=== PATIENT | female | born 1950 | race Caucasian/White ===

== ENCOUNTER → 2020-03-26 10:40 | Outpatient (BNVA) | payer MEDICARE, MEDICAID, SELFPAY | PROVIDERS: Family Provider Family Medicine; Visit Provider Family Medicine | DX: I10 Essential (primary) hypertension (principal); E78.5 Hyperlipidemia, unspecified | CPT/HCPCS: 80053; 80061; 85025 ==

== ENCOUNTER → 2020-08-20 10:39 | Outpatient (BNVA) | payer MEDICARE, MEDICAID, SELFPAY | PROVIDERS: Family Provider Family Medicine; Visit Provider Family Medicine | DX: J44.9 Chronic obstructive pulmonary disease, unspecified (principal); I10 Essential (primary) hypertension; E78.5 Hyperlipidemia, unspecified; M19.90 Unspecified osteoarthritis, unspecified site; K21.9 Gastro-esophageal reflux disease without esophagitis; E78.2 Mixed hyperlipidemia | CPT/HCPCS: 80048 ==

== ENCOUNTER → 2021-03-02 12:12 | Outpatient (BNVA) | payer MEDICARE, MEDICAID, SELFPAY | PROVIDERS: Family Provider Family Medicine; PCP Family Medicine; Visit Provider Family Medicine | DX: J44.9 Chronic obstructive pulmonary disease, unspecified (principal); J41.0 Simple chronic bronchitis; I10 Essential (primary) hypertension; K21.9 Gastro-esophageal reflux disease without esophagitis; E78.5 Hyperlipidemia, unspecified; E78.2 Mixed hyperlipidemia; M19.90 Unspecified osteoarthritis, unspecified site; M72.0 Palmar fascial fibromatosis [Dupuytren] | CPT/HCPCS: 80053; 80061; 85025 ==

== ENCOUNTER → 2021-08-19 11:29 | Outpatient (BNVA) | payer MEDICARE, MEDICAID, SELFPAY | PROVIDERS: Family Provider Family Medicine; PCP Family Medicine; Visit Provider Family Medicine | DX: I10 Essential (primary) hypertension (principal); J44.9 Chronic obstructive pulmonary disease, unspecified | CPT/HCPCS: 80053; 85025 ==

== ENCOUNTER 2021-11-03 08:02 | Outpatient (CLI) | payer MEDICARE, MEDICAID, SELFPAY ==
[2021-11-03 08:50] VITALS: BMI 32.1
--- NOTE | 2021-11-03 08:54 | ECG_ITS ---
[facility] Test Date: 2021-11-03 Pat Name: Naz Carter Department: Room: Gender: Female Head Of Academic Technology: : 1950 Requested By: Maryan Currie Order Number: [id number] Dany MD: Maryan Currie M.D. Interpretive Statements NAME OF STUDY: EXERCISE SESTAMIBI STRESS TEST INDICATION: Chest Pain Baseline blood pressure of 132/71 mm Hg, heart rate 117 beats per minute and oxygen saturation 93%. EKG showed sinus tachycardia normal axis with possible old anteroseptal infarct. The patient exercised for 3 minutes on a standard Sang protocol. Patient attained a maximum heart rate of 166 beats per minute(112% of the maximum predicted heart rate) with a blood pressure at the peak exercise of 155/77 mm Hg. The EKG at the peak exercise revealed sinus tachycardia with no significant ST-T wave changes. Patient did not have any chest pain or any significant arrhythmis with the exercise. The study was terminated due to exertional fatigue and shortness of breath. During the recovery phase, there were no new changes. Blood pressure at the end of the recovery phase was 122/74 mm Hg with a heart rate of 106 beats per minute. CONCLUSION: 1. Normal EKG response to treadmill exercise. 2. No exercise-induced chest pain or cardiac arrhythmia. 3. Decreased exercise tolerance, attained a maximum of 4.6 METs. Maximum VO2 of 16.1 mL/kg/min. Patient exercised for 3 minutes. 4. Baseline normal blood pressure with normal response to exercise. Baseline tachycardia with exaggerated heart rate response to exercise. 5. Perfusion scan will be documented separately. Electronically Signed On 11-04-2021 13:47:49 SOCIAL SERVICE ASSISTANT by Maryan Currie M.D. [id number]
--- NOTE | 2021-11-03 08:54 | NMCV_ITS ---
NM osito perf SPECT r/s* [id number] Naz Carter Age: 70 Gender: F : 1950 Exam Date: 11/03/2021 08:54 Ordering Phys: Maryan Currie MD ([email or web address]) Technologist: MATIAS Hills Exam Location: [facility] Indications: CHEST PAIN STRESS TEST [facility] IMAGE PROTOCOL Rest/Stress 1 Exercise Day Radiopharmaceutical Dose (mCi) Administration Site Administered by Rest: Tc-99m 10.8 IV MATIAS Souza Sestamibi Stress:Tc-99m 32.9 IV MATIAS Souza Sestamibi Rest: 03-Nov-2021 60 Discovery 630 Stress: 03-Nov-2021 30 Discovery 630 Radiopharmaceutical was injected at 104% maximum heart rate. Images obtained in supine and prone position. SPECT RESULTS Technical Quality: Excellent Raw Data Analysis: Normal Image Corrections: No attenuation or motion correction applied Summed Stress Score: 1 Summed Rest Score: 1 Summed Difference Score: 0 PERFUSION FINDINGS SPECT images demonstrate homogeneous tracer distribution throughout the myocardium. FUNCTIONAL RESULTS (calculated via Gated SPECT) Stress Image LV EF (%): 92 Stress EDV (mL):36 TID: 0.86 Stress ESV (mL):3 FUNCTIONAL FINDINGS: The left ventricle is normal in size. Transient Ischemia Dilatation of 0.86. There is hyperdynamic left ventricular systolic function. The left ventricular ejection fraction is normal with a value of 92%. There is hyperdynamic left ventricular wall thickening. IMPRESSIONS 1. Myocardial perfusion imaging is normal. 2. There is hyperdynamic left ventricular systolic function, LVEF=92%. 3. There is hyperdynamic left ventricular wall thickening. 4. Normal EKG response to treadmill exercise. Decreased exercise tolerance. Refer to separate report for details. 5. Scan indicates low risk for cardiac events. Maryan Currie MD (Electronically Signed) Final Date: 04 November 2021 13:43 S
[2021-11-03 10:37] VITALS: BP 122/74; PULSE 105
== END 2021-11-03 08:03 | disposition home or self-care (01) ==
LOC: CDL 08:03
PROVIDERS: PCP Family Medicine; Visit Provider Internal Medicine Cardiovascular Disease
DX: R07.9 Chest pain, unspecified (principal)
CPT/HCPCS: 78452; 93017; A9500

== ENCOUNTER 2022-01-04 14:15 | Outpatient (CLI) | payer MEDICARE, MEDICAID, SELFPAY ==
--- NOTE | 2022-01-04 14:36 | MM_ITS ---
WS: [id number] BILATERAL SCREENING 3D TOMOSYNTHESIS DIGITAL MAMMOGRAM WITH CAD HISTORY: SCREENING COMPARISON: 10/11/2017 and 06/11/2015 Bilateral CC and MLO views submitted. Computer aided detection analyzed. Breast composition: There are scattered areas of fibroglandular density. No suspicious masses, microc alcifications or architectural distortion. MM/[place] [id number] IMPRESSION: BI-RADS: 2-Benign FOLLOW UP: 1 Year Follow-up
--- NOTE | 2022-01-04 14:45 | XR_ITS ---
WS: [id number] SCREENING DEXA SCAN Quu CLINICAL INFORMATION: Z78.0 - Asymptomatic menopausal state COMPARISON: None. FINDINGS: The L1-L4 bone mineral density measures 1.079 g/cm2. This corresponds to a T score score of -0.8 and Z score of 0.3. Left femoral neck bone mineral density measures 0.843 g/cm2. This corresponds to a T score of -1.3 an d Z score of -0.1. Right femoral neck bone mineral density measures 0.883 g/cm2. This corresponds to a T score -1.0of an d Z score of 0.2. Mean femoral neck bone mineral density measures 0.863 g/cm2. This corresponds to a T score of -1.1 an d Z score of 0.0. XR/XR DEXA axial skeleton* 92576 IMPRESSION: Normal bone mineralization in the lumbar spine. Osteopenia in the femoral necks . Patient's FRAX calculated 10 year probability for major osteoporotic fracture i s 13.8 % and osteoporotic hip fracture is 3.5%.
== END 2022-01-04 14:16 | disposition home or self-care (01) ==
LOC: RAD 14:18
PROVIDERS: PCP Family Medicine; Visit Provider Family Medicine
DX: Z12.31 Encounter for screening mammogram for malignant neoplasm of breast (principal); Z78.0 Asymptomatic menopausal state
CPT/HCPCS: 77063; 77067; 77080

== ENCOUNTER → 2022-01-12 07:55 | Outpatient (BNVA) | payer MEDICARE, MEDICAID, SELFPAY | PROVIDERS: PCP Family Medicine; Referring Provider Family Medicine; Visit Provider Surgery | DX: Z12.11 Encounter for screening for malignant neoplasm of colon (principal) | CPT/HCPCS: 99024; 99203 ==

== ENCOUNTER → 2022-02-10 10:17 | Outpatient (BNVA) | payer MEDICARE, MEDICAID, SELFPAY | PROVIDERS: PCP Family Medicine; Visit Provider Family Medicine | DX: J44.9 Chronic obstructive pulmonary disease, unspecified (principal); M19.90 Unspecified osteoarthritis, unspecified site; I10 Essential (primary) hypertension; E78.5 Hyperlipidemia, unspecified; K21.9 Gastro-esophageal reflux disease without esophagitis; E78.2 Mixed hyperlipidemia; F41.1 Generalized anxiety disorder; Z12.11 Encounter for screening for malignant neoplasm of colon; R25.2 Cramp and spasm | CPT/HCPCS: 80053; 80061; 83735; 85025 ==

== ENCOUNTER → 2022-02-19 06:43 | Day surgery (SDC) | payer MEDICARE, MEDICAID, SELFPAY ==
[2022-02-17 15:42] VITALS: BMI 33.1
[2022-02-19 07:14] VITALS: BP 112/71; PULSE 78; RESP 18; TEMP 36.6; O2SAT 93
--- NOTE | 2022-02-19 07:23 | PC.NURSE ---
when getting pt ready she states that she had solid food at 1800 yesterday. notified emigdio berg and tap water enema given. pt had brown liquid with small pieces of formed stool. when continuing questions pt stated she did not drink magnesium citrate or take dulcolax tablets. dr. berg notified . procedure cancelled.
--- NOTE | 2022-02-19 07:47 | PC.NURSE ---
spoke with pt. I will call office to have pt rescheduled.
--- NOTE | 2022-02-19 12:00 | ANE.PACU2 ---
Inpatient post-anesthesia follow up: Airway intact: Yes Vital signs: Temperature 97.8 F Pulse Rate 78 Respiratory Rate 18 Blood Pressure 112/71 Pulse Oximetry 93 Oxygen Delivery Me thod Room Air Oxygen Flow Rate Fraction of Inspir ed Oxygen Hydration adequate: Yes Nausea and vomiting: No Pain level: 1 Mental status: Baseline
[2022-05-10 11:49] VITALS: BMI 32.2
== END ==
PROVIDERS: PCP Family Medicine; Visit Provider Surgery
PROC: 0DJD8ZZ Inspection of Lower Intestinal Tract, Via Natural or Artificial Opening Endoscopic (ICD-10-PCS; CPT 45378; principal; 2022-05-12 20:15)
DX: Z01.818 Encounter for other preprocedural examination (principal)

== ENCOUNTER 2022-05-12 07:05 | Day surgery (SDC) | payer MEDICARE, MEDICAID, SELFPAY ==
[2022-05-12 07:00] VITALS: BMI 32.2
[2022-05-12 07:38] VITALS: BP 159/78; PULSE 70; RESP 16; TEMP 36.1; O2SAT 92
[2022-05-12] MEDS: sodium chloride 0.9% 1,000 ML 30 ML IV (07:49)
--- NOTE | 2022-05-12 07:55 | P.ANESASSM_ITS ---
Pre-Anesthetic Assessment Height/Weight: Height 1.63 m Weight 85.275 kg Temp Pulse Resp BP Pulse Ox O2 Del Method 97 F L 70 16 159/78 92 05/12/22 07:38 05/12/22 07:38 05/12/22 07:38 05/12/22 07:38 05/12/22 07:38 05/12/22 07:38 Preop Diagnosis: diagnostic Operation Date: 05/12/22 08:45 Proposed Procedures p Colonoscopy 42681/Z12.11(Not Applicable) - Sanchez Gomez MD Familial anesthetic complications: None Was Beta Ayse taken within 24 hours: N/A Was Clonidine taken within 24 hours: N/A Last intake: Intake Last Liquid Date 05/11/22 Last Liquid Time 21:00 Last Solid Date 05/10/22 Last Solid Time 17:00 Social No alcohol and No tobacco former smoker Exam alert, oriented x 3 and regular rate & rhythm Diffuse mild wheezes - patient already took her inhalers this morning Airway Mallampati: Class II Dentition: false Pulmonary Chronic Obstructive Pulmonary Disease (3 L NC continously) and Sleep Apnea CV/HEM Hypertension GI Gastroesophageal Reflux Disease Neuropsych Anxiety Anesthetic Plan ASA status: 4 Anesthesia: MAC Risk of > 500 ml blood loss (7ml/kg in children): No Medications/Allergies Home Medications Medication Instructions Recorded Confirmed Last Taken Type aspirin 81 mg tablet,delayed 81 mg PO DAILY 12/12/19 05/12/22 05/09/22 History release omega 5-aje-nsz-fish oil 500 mg 1 cap PO DAILY 12/12/19 05/12/22 05/11/22 History (200mg-300mg)-1,000 mg capsule (Ultra [place]-3) cholecalciferol (vitamin D3) 50 50 mcg PO DAILY 09/08/21 05/12/22 05/11/22 History mcg (2,000 unit) capsule lavb-H97-xyoimygj tablet 1 tab PO DAILY 09/08/21 05/12/22 05/11/22 History albuterol sulfate See Rx Instructions .Route 02/10/22 05/12/22 05/11/22 Rx .COMPLEX #180 vials albuterol sulfate 90 mcg/actuation 2 puff inhalation 6XD PRN 02/10/22 05/12/22 05/12/22 Rx aerosol inhaler shortness of breath or wheezing 90 days #72 grams guaifenesin 1,200 mg tablet, 1,200 mg PO Q12H PRN cough 30 days 02/10/22 05/12/22 05/11/22 Rx extended release 12 hr #60 tabs ipratropium 20 mcg-albuterol 100 1 puff inhalation 6XD PRN 02/10/22 05/12/22 05/11/22 Rx mcg/actuation mist for inhalation shortness of breath or wheezing #4 (Combivent Respimat) grams meloxicam 15 mg tablet 15 mg PO DAILY 90 days #90 tabs 02/10/22 05/12/22 05/11/22 Rx omeprazole 40 mg capsule,delayed 40 mg PO BID 90 days #180 caps 02/10/22 05/12/22 05/11/22 Rx release propranolol 20 mg tablet 20 mg PO BID 90 days #180 tabs 02/10/22 05/12/22 05/11/22 Rx roflumilast 500 mcg tablet See Rx Instructions .Route 02/10/22 05/12/22 05/11/22 Rx (Gregoriresp) .COMPLEX 90 days #90 tabs fluticasone 250 mcg-salmeterol 50 1 inh inhalation BID 30 days #60 ea 02/13/22 05/12/22 05/11/22 Rx mcg/dose blistr powdr for inhalation (Advair Diskus) loratadine 10 mg capsule 10 mg PO DAILY PRN Allergy Symptoms 02/17/22 05/12/22 05/11/22 History alprazolam 0.5 mg tablet 0.25 mg PO BID PRN anxiety #25 tabs 02/24/22 05/12/22 05/11/22 Rx hydrochlorothiazide 12.5 mg tablet See Rx Instructions .Route 03/01/22 05/12/22 05/11/22 Rx .COMPLEX #90 tabs pravastatin 40 mg tablet 40 mg PO DAILY 05/10/22 05/12/22 05/11/22 History PreserVision AREDS-2 2 tab PO DAILY 05/12/22 05/12/22 05/11/22 History Allergies Allergy/AdvReac Type Severity Reaction Status Date / Time No Known Allergies Allergy Verified 02/17/22 15:52 Current Medications Generic Name Dose Route Start Last Admin Trade Name Freq PRN Reason Stop Dose Admin Sodium Chloride 1,000 mls @ 30 mls/hr 05/12/22 07:30 05/12/22 07:49 Sodium Chloride 0.9% IV 05/13/22 07:29 30 mls/hr .Q24H BRIDGET Administration PFSH Anesthesia Medical History (Updated 02/28/22 @ 21:52 by Talisha Navarrete) Chronic arthritis 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 COPD (chronic obstructive pulmonary disease) Generalized anxiety disorder GERD (gastroesophageal reflux disease) HTN (hypertension), benign Hyperlipidemia JAQUELIN (obstructive sleep apnea) Panic disorder Pneumothorax Psychiatric care Surgical History H/O esophagogastroduodenoscopy History of colonoscopy 10+yrs S/P thoracostomy tube placement Family History Sister CAD (coronary artery disease) Father Heart attack Mother CHF (congestive heart failure) Social History Smoking and tobacco status: former smoker (quit in 2014) Quit status (tobacco): has quit using tobacco Year quit tobacco: 2016 Second hand smoke exposure: Yes Alcohol intake: never Female Reproductive History Spontaneous abortions: No Data Anesthesia Cardiac Studies: Sestamibi Stress Test (Cardiology) 11/03
--- NOTE | 2022-05-12 09:00 | W.PM.OPSFHP ---
Same Day Surgery H&P Indication for Procedure/HPI DATE OF PROCEDURE: May 12, 2022 CHIEF COMPLAINT/INDICATIONFOR SURGICAL PROCEDURE: colonoscopy PREOP DIAGNOSIS: diagnostic PLANNED PROCEDURE: Operation Date: 05/12/22 08:45 Proposed Procedures p Colonoscopy 38962/Z12.11(Not Applicable) - aSnchez Gomez MD Medications/Allergies* Home Medications Medication Instructions Recorded Confirmed Type aspirin 81 mg tablet,delayed 81 mg PO DAILY 12/12/19 05/12/22 History release omega 7-xfa-wea-fish oil 500 mg 1 cap PO DAILY 12/12/19 05/12/22 History (200mg-300mg)-1,000 mg capsule (Ultra [place]-3) cholecalciferol (vitamin D3) 50 50 mcg PO DAILY 09/08/21 05/12/22 History mcg (2,000 unit) capsule eijz-A88-dcbrkhpy tablet 1 tab PO DAILY 09/08/21 05/12/22 History loratadine 10 mg capsule 10 mg PO DAILY PRN Allergy Symptoms 02/17/22 05/12/22 History pravastatin 40 mg tablet 40 mg PO DAILY 05/10/22 05/12/22 History PreserVision AREDS-2 2 tab PO DAILY 05/12/22 05/12/22 History Allergies/Adverse Reactions Allergy/AdvReac Type Severity Reaction Status Date / Time No Known Allergies Allergy Verified 02/17/22 15:52 Current Medications: Generic Name Dose Route Start Last Admin Trade Name Freq PRN Reason Stop Dose Admin Sodium Chloride 1,000 mls @ 30 mls/hr 05/12/22 07:30 05/12/22 07:49 Sodium Chloride 0.9% IV 05/13/22 07:29 30 mls/hr .Q24H BRIDGET Administration Pertinent History/Comorbid Conditions* Medical History (Updated 02/28/22 @ 21:52 by Talisha Navarrete) Chronic arthritis 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 COPD (chronic obstructive pulmonary disease) Generalized anxiety disorder GERD (gastroesophageal reflux disease) HTN (hypertension), benign Hyperlipidemia JAQUELIN (obstructive sleep apnea) Panic disorder Pneumothorax Psychiatric care Surgical History (Updated 01/12/22 @ 08:22 by Sanchez Gomez MD) H/O esophagogastroduodenoscopy History of colonoscopy 10+yrs S/P thoracostomy tube placement Family History (Updated 09/08/21 @ 10:05 by Helen Rod LPN) Father Mother CAD (coronary artery disease) Sister CHF (congestive heart failure) Mother Heart attack Father Social History Smoking and tobacco status: former smoker (quit in 2014) Quit status (tobacco): has quit using tobacco Year quit tobacco: 2016 Second hand smoke exposure: Yes Alcohol intake: never Pertinent Exam Findings alert, oriented x 3 and regular rate & rhythm Recommendations Surgery/Procedure today Coding Level of Care Code Acute Delivery Coordinator for Kayla Blackwell
[2022-05-12 10:17] VITALS: BP 102/54; PULSE 66; RESP 18; TEMP 36.1; O2SAT 96
[2022-05-12 10:28] VITALS: BP 107/69; PULSE 65; RESP 18; O2SAT 96
--- NOTE | 2022-05-12 17:54 | ANE.PACU2 ---
Inpatient post-anesthesia follow up: Airway intact: Yes Vital signs: Temperature 97.0 F Pulse Rate 65 Respiratory Rate 18 Blood Pressure 107/69 Pulse Oximetry 96 Oxygen Delivery Me thod Nasal Cannula Oxygen Flow Rate 3 Fraction of Inspir ed Oxygen Hydration adequate: Yes Nausea and vomiting: No Pain level: 1 Mental status: Baseline
== END 2022-05-12 10:47 | disposition home or self-care (01) ==
PROVIDERS: PCP Family Medicine; Visit Provider Surgery
PROC: 0DJD8ZZ Inspection of Lower Intestinal Tract, Via Natural or Artificial Opening Endoscopic (ICD-10-PCS; CPT 45378; principal; 2022-05-12 08:45)
DX: Z12.11 Encounter for screening for malignant neoplasm of colon (principal); K57.30 Diverticulosis of large intestine without perforation or abscess without bleeding; K64.8 Other hemorrhoids; D12.2 Benign neoplasm of ascending colon; D12.4 Benign neoplasm of descending colon; Z79.82 Long term (current) use of aspirin; J44.9 Chronic obstructive pulmonary disease, unspecified; F41.1 Generalized anxiety disorder; I10 Essential (primary) hypertension; E78.5 Hyperlipidemia, unspecified; G47.33 Obstructive sleep apnea (adult) (pediatric); Z87.891 Personal history of nicotine dependence; Z99.81 Dependence on supplemental oxygen; G47.30 Sleep apnea, unspecified; K21.9 Gastro-esophageal reflux disease without esophagitis
CPT/HCPCS: 45385; 88305; J2704; J7030

== ENCOUNTER → 2022-05-18 09:58 | Outpatient (BNVA) | payer MEDICARE, MEDICAID, SELFPAY | PROVIDERS: PCP Family Medicine; Visit Provider Surgery | DX: K63.5 Polyp of colon (principal) | CPT/HCPCS: 99212 ==

== ENCOUNTER → 2022-08-05 09:23 | Outpatient (BNVA) | payer MEDICARE, MEDICAID, SELFPAY | PROVIDERS: PCP Family Medicine; Visit Provider Family Medicine | DX: J44.9 Chronic obstructive pulmonary disease, unspecified (principal); J41.0 Simple chronic bronchitis; I10 Essential (primary) hypertension; M19.90 Unspecified osteoarthritis, unspecified site; K21.9 Gastro-esophageal reflux disease without esophagitis; E78.2 Mixed hyperlipidemia; J96.10 Chronic respiratory failure, unspecified whether with hypoxia or hypercapnia; J44.1 Chronic obstructive pulmonary disease with (acute) exacerbation; F41.1 Generalized anxiety disorder; Z12.11 Encounter for screening for malignant neoplasm of colon | CPT/HCPCS: 80048; 85025 ==

== ENCOUNTER → 2022-10-07 17:02 | Outpatient (BNVA) | payer MEDICARE, MEDICAID, SELFPAY | PROVIDERS: PCP Family Medicine; Visit Provider Emergency Medicine | DX: J41.0 Simple chronic bronchitis (principal); J96.10 Chronic respiratory failure, unspecified whether with hypoxia or hypercapnia | CPT/HCPCS: 71046 ==

== ENCOUNTER → 2023-01-27 09:09 | Outpatient (BNVA) | payer MEDICARE, MEDICAID, SELFPAY | PROVIDERS: PCP Family Medicine; Visit Provider Family Medicine | DX: J41.0 Simple chronic bronchitis (principal); J44.9 Chronic obstructive pulmonary disease, unspecified; I10 Essential (primary) hypertension; M19.90 Unspecified osteoarthritis, unspecified site; K21.9 Gastro-esophageal reflux disease without esophagitis; E78.2 Mixed hyperlipidemia; J96.10 Chronic respiratory failure, unspecified whether with hypoxia or hypercapnia | CPT/HCPCS: 80053; 80061 ==

== ENCOUNTER → 2023-08-03 12:38 | Outpatient (BNVA) | payer MEDICARE, MEDICAID, SELFPAY | PROVIDERS: PCP Family Medicine; Visit Provider Surgery | DX: K21.9 Gastro-esophageal reflux disease without esophagitis (principal); R10.13 Epigastric pain | CPT/HCPCS: 99214 ==

== ENCOUNTER 2023-08-12 07:59 | Day surgery (SDC) | payer MEDICARE, MEDICAID, SELFPAY ==
[2023-08-12 08:20] VITALS: BP 129/73; PULSE 71; RESP 18; TEMP 36.6; O2SAT 96
[2023-08-12 08:23] VITALS: BMI 33.6
[2023-08-12] MEDS: sodium chloride 0.9% 1,000 ML 30 ML IV (08:23)
--- NOTE | 2023-08-12 08:36 | W.PM.OPSUD ---
Surgery/Procedure H&P Update DATE OF PROCEDURE: August 12, 2023 DATE H&P PERFORMED: 08/03/23 H&P UPDATE INFORMATION: I have reviewed H&P completed within last 30 days, I have examined patient prior to procedure and No changes to prior documentation PLANNED PROCEDURE: Operation Date: 08/12/23 09:00 Proposed Procedures p 79474 egd,K21.9,R10.13(Not Applicable) - Kd Eason, DO
--- NOTE | 2023-08-12 08:37 | ANES.PREANE2 ---
Pre-Anesthetic Assessment Height/Weight: Height 1.63 m Weight 88.904 kg Temp Pulse Resp BP Pulse Ox O2 Del Method 97.8 F 71 18 129/73 96 Nasal Cannula 08/12/23 08:20 08/12/23 08:20 08/12/23 08:20 08/12/23 08:20 08/12/23 08:20 08/12/23 08:20 Preop Diagnosis: GERD, Epigastric Pain Operation Date: 08/12/23 09:00 Proposed Procedures p 63808 egd,K21.9,R10.13(Not Applicable) - Kd Eason DO Familial anesthetic complications: none Was Beta Ayse taken within 24 hours: Yes Last intake: Intake Last Liquid Date 08/11/23 Last Liquid Time 22:30 Last Solid Date 08/11/23 Last Solid Time 22:30 Social No alcohol and No tobacco (quit 8 years prior) Exam alert, oriented x 3, clear to auscultation bilaterally and regular rate & rhythm Airway Submandibular: within normal limits Cervical ROM: within normal limits Mallampati: Class II Dentition: false (upper and lower plate) Pulmonary Chronic Obstructive Pulmonary Disease and Sleep Apnea (non-compliant per patient) 3L NC O2 continous use CV/HEM Hypertension Hepatic None reported GI Gastroesophageal Reflux Disease Epigastric Pain Metabolic Hyperlipidemia [facility]/sk None reported Neuropsych Anxiety and Depression Anesthetic Plan ASA status: 3 Medications/Allergies Home Medications Medication Instructions Recorded Confirmed Last Taken Type aspirin 81 mg tablet,delayed 81 mg PO DAILY 12/12/19 08/11/23 08/11/23 History release omega 7-xfg-elm-fish oil 500 mg 1 cap PO DAILY 12/12/19 08/11/23 08/11/23 History (200mg-300mg)-1,000 mg capsule (Ultra [place]-3) cholecalciferol (vitamin D3) 50 50 mcg PO DAILY 09/08/21 08/11/23 08/11/23 History mcg (2,000 unit) capsule qdpm-J39-baawdqpv tablet 1 tab PO DAILY 09/08/21 08/11/23 08/11/23 History loratadine 10 mg capsule 10 mg PO DAILY PRN Allergy Symptoms 02/17/22 08/11/23 08/11/23 History PreserVision AREDS-2 2 tab PO DAILY 05/12/22 08/11/23 08/11/23 History miscellaneous medical supply See Rx Instructions miscellaneous 08/05/22 08/11/23 08/11/23 Rx .COMPLEX #1 ea alprazolam 0.5 mg tablet 0.25 mg PO BID PRN anxiety #20 tabs 04/17/23 08/11/23 08/12/23 Rx albuterol sulfate 90 mcg/actuation 2 puff inhalation 6XD PRN 07/25/23 08/11/23 08/12/23 Rx aerosol inhaler shortness of breath or wheezing 90 days #72 grams fluticasone fur. 200 mcg-umeclid 1 inh inhalation Q24H #60 ea 07/25/23 08/11/23 08/12/23 Rx 62.5 mcg-vilant 25 mcg inhalat.powder (Trelegy Ellipta) hydrochlorothiazide 25 mg tablet 25 mg PO DAILY 90 days #90 tabs 07/25/23 08/11/23 08/11/23 Rx ipratropium 20 mcg-albuterol 100 1 puff inhalation 6XD PRN 07/25/23 08/11/23 08/12/23 Rx mcg/actuation mist for inhalation shortness of breath or wheezing #4 (Combivent Respimat) grams meloxicam 15 mg tablet 15 mg PO DAILY 90 days #90 tabs 07/25/23 08/11/23 08/11/23 Rx pantoprazole 40 mg tablet,delayed 40 mg PO BID 90 days #180 tabs 07/25/23 08/11/23 08/11/23 Rx release pravastatin 40 mg tablet 40 mg PO DAILY 90 days #90 tabs 07/25/23 08/11/23 08/11/23 Rx propranolol 20 mg tablet 20 mg PO BID 90 days #180 tabs 07/25/23 08/11/23 08/12/23 Rx sucralfate 1 gram tablet (Carafate) 1 g PO BID 14 days #28 tabs 07/25/23 08/11/23 08/11/23 Rx albuterol sulfate 2.5 mg/3 mL 2.5 mg inhalation Q4H PRN 08/11/23 08/11/23 08/12/23 History (0.083 %) solution for nebulization Shortness Of Breath roflumilast 500 mcg tablet 500 mcg PO DAILY 08/11/23 08/11/23 08/11/23 History (Dalires) Allergies Allergy/AdvReac Type Severity Reaction Status Date / Time Bactrim Allergy rash Uncoded 08/12/23 08:28 Current Medications Generic Name Dose Route Start Last Admin Trade Name Reeseq PRN Reason Stop Dose Admin Sodium Chloride 1,000 mls @ 30 mls/hr 08/12/23 08:15 08/12/23 08:23 Sodium Chloride 0.9% IV 08/13/23 08:14 30 mls/hr .Q24H BRIDGET Administration PFSH Anesthesia Medical History Chronic arthritis 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 Colon polyps COPD (chronic obstructive pulmonary disease) Generalized anxiety disorder GERD (gastroesophageal reflux disease) HTN (hypertension), benign Hyperlipidemia JAQUELIN (obstructive sleep apnea) Panic disorder Pneumothorax Psychiatric care Surgical History H/O esophagogastroduodenoscopy History of colonoscopy (05/12/22) 10+yrs S/P thoracostomy tube placement Family History Sister CAD (coronary artery disease) Father Heart attack Mother CHF (congestive heart failure) Social History Smoking and tobacco/nicotine status: former use of tobacco/nicotine (quit in 2014) Quit status (tobacco/nicotine): has quit using Year quit tobacco: 2016 Second hand smoke exposure: Yes Alcohol intake: never Substance/Drug Use: never Female Reproductive History Spontaneous abortions: No Data Anesthesia Cardiac Studies: Sestamibi Stress Test (Cardiology) 11/03/21
[2023-08-12 08:57] VITALS: BP 113/62; PULSE 72; RESP 14; TEMP 36.4; O2SAT 95
[2023-08-12 09:02] VITALS: BP 111/67; PULSE 64; RESP 18; O2SAT 95
[2023-08-12 09:10] VITALS: BP 112/57; PULSE 65; RESP 18; O2SAT 98
--- NOTE | 2023-08-12 12:44 | ANE.PACU2 ---
Inpatient post-anesthesia follow up: Airway intact: Yes Vital signs: Temperature 97.5 F Pulse Rate 65 Respiratory Rate 18 Blood Pressure 112/57 Pulse Oximetry 98 Oxygen Delivery Me thod Nasal Cannula Oxygen Flow Rate 4 Fraction of Inspir ed Oxygen Hydration adequate: Yes Nausea and vomiting: No Pain level: 2 Mental status: Baseline
== END 2023-08-12 09:35 | disposition home or self-care (01) ==
PROVIDERS: PCP Family Medicine; Visit Provider Surgery
PROC: 0DJ08ZZ Inspection of Upper Intestinal Tract, Via Natural or Artificial Opening Endoscopic (ICD-10-PCS; CPT 43235; principal; 2023-08-12 09:00)
DX: R10.13 Epigastric pain (principal); K21.9 Gastro-esophageal reflux disease without esophagitis; Z87.891 Personal history of nicotine dependence; J44.9 Chronic obstructive pulmonary disease, unspecified; Z91.199 Patient's noncompliance with other medical treatment and regimen due to unspecified reason; Z99.81 Dependence on supplemental oxygen; I10 Essential (primary) hypertension; E78.5 Hyperlipidemia, unspecified; Z79.82 Long term (current) use of aspirin; G47.33 Obstructive sleep apnea (adult) (pediatric)
CPT/HCPCS: 43239; 88305; 88342; J2704; J7030

== ENCOUNTER 2023-08-24 07:22 | Outpatient (CLI) | payer MEDICARE, MEDICAID, SELFPAY ==
--- NOTE | 2023-08-24 07:30 | US_ITS ---
WS: [id number] RIGHT UPPER QUADRANT ULTRASOUND HISTORY: epigastric pain COMPARISON: None available. Liver: 19.6 cm in length. Moderate hepatomegaly. Coarse echotexture and increased echogenicity throug hout the liver. No mass. No bile duct dilatation. Portal Vein: Not imaged. Gallbladder: Normally distended gallbladder with no stones or wall thickening. CBD: 0.4 cm Pancreas: Normal size and echogenicity. Right kidney: 12.7 cm in length. Normal size and echogenicity. No hydronephrosis or mass. Aorta and IVC: Unremarkable abdominal aorta and IVC. No ascites. IMPRESSION: 1. Moderate hepatomegaly and hepatic steatosis. 2. Normal gallbladder. No cholelithiasis.
== END 2023-08-24 07:23 | disposition home or self-care (01) ==
LOC: RAD 07:22
PROVIDERS: PCP Family Medicine; Visit Provider Surgery
DX: K76.0 Fatty (change of) liver, not elsewhere classified (principal); R16.0 Hepatomegaly, not elsewhere classified; R10.13 Epigastric pain
CPT/HCPCS: 76705

== ENCOUNTER → 2023-08-30 12:58 | Outpatient (BNVA) | payer MEDICARE, MEDICAID, SELFPAY | PROVIDERS: PCP Family Medicine; Visit Provider Surgery | DX: R10.13 Epigastric pain (principal) | CPT/HCPCS: 99214 ==

== ENCOUNTER 2023-09-14 08:20 | Outpatient (CLI) | payer MEDICARE, MEDICAID, SELFPAY ==
--- NOTE | 2023-09-14 10:00 | NM_ITS ---
WS: [email or web address] NUCLEAR MEDICINE HIDA SCAN CLINICAL INFORMATION: epigastric pain TECHNIQUE: Following intravenous administration of 7.9 mCi of technetium 99m mebrofenin, images of th e abdomen were obtained over the course of 60 minutes. Next, gallbladder ejection fraction was determ ined by obtaining preprandial and one-hour postprandial images of the gallbladder following oral silvestre stion of Ensure. COMPARISON: Ultrasound 08/24/2023 FINDINGS: Normal hepatic uptake at 5 minutes. Normal hepatic excretion. Normal common bile duct and small bowel activity. Gallbladder is visualized by 15 minutes. No evidence of acute cholecystitis. Hepatomegaly. Gallbladder ejection fraction 83% within normal limits. No evidence of chronic cholecystitis. IMPRESSION: 1. No evidence of acute or chronic cholecystitis. 2. Gallbladder ejection fraction 83% within normal limits.
== END 2023-09-14 08:21 | disposition home or self-care (01) ==
PROVIDERS: PCP Family Medicine; Visit Provider Surgery
DX: R10.13 Epigastric pain (principal)
CPT/HCPCS: 78227; A9537

== ENCOUNTER → 2023-11-01 15:49 | Outpatient (BNVA) | payer MEDICARE, MEDICAID, SELFPAY | PROVIDERS: PCP Family Medicine; Visit Provider Surgery | DX: Z09 Encounter for follow-up examination after completed treatment for conditions other than malignant neoplasm (principal); K82.8 Other specified diseases of gallbladder | CPT/HCPCS: 99212 ==

== ENCOUNTER 2023-11-08 11:38 | Day surgery (SDC) | payer MEDICARE, MEDICAID, SELFPAY ==
[2023-11-08] VITALS (12 sets, daily range): BP systolic 129–182; BP diastolic 52–95; PULSE 72–96; RESP 16–20; TEMP 36.6–37.3; O2SAT 90–97; BMI 33.7
--- NOTE | 2023-11-08 12:48 | ECG_ITS ---
[facility] Test Date: 2023-11-08 Pat Name: Naz Carter Department: Room: Gender: Female Sustainability Director: : 1950 Requested By: Kaleb Gee Order Number: [id number] Dany MD: Rishi Harrison M.D. Measurements Intervals [place] Rate: 90 P: 62 MN: 193 QRS: 51 QRSD: 79 T: 62 QT: 338 QTc: 414 Interpretive Statements SINUS RHYTHM No previous ECG available for comparison Electronically Signed On 11-08-2023 13:41:49 CEO & FOUNDER by Rishi Harrison M.D. [email or web address].[email or web address]/[id number]
--- NOTE | 2023-11-08 12:49 | P.ANESASSM_ITS ---
Pre-Anesthetic Assessment Height/Weight: Height 1.63 m Weight 89 kg O2 Del Method O2 Flow Rate Nasal Cannula 3 11/08/23 12:24 11/08/23 12:24 Operation Date: 11/08/23 13:35 Proposed Procedures p Laparoscopic Cholecystectomy(Not Applicable) - Kd Eason DO Last intake: Intake Last Liquid Date 11/07/23 Last Liquid Time 21:00 Last Solid Date 11/07/23 Last Solid Time 19:00 Social No tobacco quit 8 years ago Exam alert, oriented x 3 and regular rate & rhythm distant breath sounds Airway Submandibular: within normal limits Cervical ROM: within normal limits Mallampati: Class I Dentition: false Pulmonary 3 liters oxygen at all times for COPD CV/HEM Hypertension Anesthetic Plan ASA status: 3 Anesthesia: General Risk of > 500 ml blood loss (7ml/kg in children): No Medications/Allergies Home Medications Medication Instructions Recorded Confirmed Last Taken Type aspirin 81 mg tablet,delayed 81 mg PO DAILY 12/12/19 11/07/23 11/07/23 07:00 History release omega 0-iun-lms-fish oil 500 mg 1 cap PO DAILY 12/12/19 11/07/23 11/07/23 07:00 History (200mg-300mg)-1,000 mg capsule (Ultra [place]-3) cholecalciferol (vitamin D3) 50 50 mcg PO DAILY 09/08/21 11/07/23 11/07/23 History mcg (2,000 unit) capsule [id number] tablet 1 tab PO DAILY 09/08/21 11/07/23 11/07/23 History loratadine 10 mg capsule 10 mg PO DAILY PRN Allergy Symptoms 02/17/22 11/07/23 11/07/23 History PreserVision AREDS-2 2 tab PO DAILY 05/12/22 11/07/23 11/07/23 History albuterol sulfate 90 mcg/actuation 2 puff inhalation 6XD PRN 07/25/23 11/07/23 11/08/23 Rx aerosol inhaler shortness of breath or wheezing 90 days #72 grams fluticasone fur. 200 mcg-umeclid 1 inh inhalation Q24H #60 ea 07/25/23 11/07/23 11/08/23 07:00 Rx 62.5 mcg-vilant 25 mcg inhalat.powder (Trelegy Ellipta) hydrochlorothiazide 25 mg tablet 25 mg PO DAILY 90 days #90 tabs 07/25/23 11/07/23 11/07/23 18:00 Rx ipratropium 20 mcg-albuterol 100 1 puff inhalation 6XD PRN 07/25/23 11/07/23 11/08/23 07:00 Rx mcg/actuation mist for inhalation shortness of breath or wheezing #4 (Combivent Respimat) grams meloxicam 15 mg tablet 15 mg PO DAILY 90 days #90 tabs 07/25/23 11/07/23 11/07/23 07:00 Rx pantoprazole 40 mg tablet,delayed 40 mg PO BID 90 days #180 tabs 07/25/23 11/07/23 11/07/23 Rx release pravastatin 40 mg tablet 40 mg PO DAILY 90 days #90 tabs 07/25/23 11/07/23 11/07/23 19:00 Rx propranolol 20 mg tablet 20 mg PO BID 90 days #180 tabs 07/25/23 11/07/23 11/07/23 Rx roflumilast 500 mcg tablet 500 mcg PO DAILY 08/11/23 11/07/23 11/07/23 History (Daliresp) alprazolam 0.5 mg tablet 0.25 mg (1/2 x 0.5 mg) PO BID PRN 09/06/23 11/07/23 11/07/23 Rx anxiety #20 tabs albuterol sulfate 2.5 mg/3 mL 2.5 mg (3 mL) inhalation Q4H PRN 09/15/23 11/08/23 11/07/23 Rx (0.083 %) solution for nebulization Shortness Of Breath #180 mL Allergies Allergy/AdvReac Type Severity Reaction Status Date / Time Bactrim Allergy rash Uncoded 11/07/23 11:47 [facility] Anesthesia Medical History Colon polyps 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 Pneumothorax Psychiatric care COPD (chronic obstructive pulmonary disease) JAQUELIN (obstructive sleep apnea) Panic disorder Chronic arthritis Hyperlipidemia HTN (hypertension), benign GERD (gastroesophageal reflux disease) Generalized anxiety disorder Surgical History H/O esophagogastroduodenoscopy S/P thoracostomy tube placement History of colonoscopy (05/12/22) 10+yrs Family History Sister CAD (coronary artery disease) Father Heart attack Mother CHF (congestive heart failure) Social History Smoking and tobacco/nicotine status: former use of tobacco/nicotine (quit in 2014) Quit status (tobacco/nicotine): has quit using Year quit tobacco: 2016 Second hand smoke exposure: Yes Alcohol intake: never Substance/Drug Use: never Female Reproductive History Spontaneous abortions: No Data Anesthesia Cardiac Studies: Sestamibi Stress Test (Cardiology) 11/03
[2023-11-08] MEDS: sodium chloride 0.9% 1,000 ML 30 ML IV (13:19)
--- NOTE | 2023-11-08 13:21 | W.PM.OPSUD ---
Surgery/Procedure H&P Update DATE OF PROCEDURE: November 08, 2023 DATE H&P PERFORMED: 11/01/23 H&P UPDATE INFORMATION: I have reviewed H&P completed within last 30 days, I have examined patient prior to procedure and No changes to prior documentation PLANNED PROCEDURE: Operation Date: 11/08/23 13:35 Proposed Procedures p Laparoscopic Cholecystectomy(Not Applicable) - Kd Eason DO
[2023-11-08] MEDS: ceFAZolin 2,000 MG in sodium chloride 0.9% (plus) 50 ML 100 MG IV (14:12)
[2023-11-08] MEDS: lidocaine-epi 1% 20 mL INJ INJECTION (14:44)
--- NOTE | 2023-11-08 15:01 | P.OP_ITS ---
Operative Report Date of procedure: November 08, 2023 Surgeon: Kd Eason DO Brief History: This very pleasant 72-year-old female who was diagnosed with biliary dyskinesia and right upper quadrant syndrome. Laparoscopic cholecystectomy was indicated. The risks and benefits, especially including a 20 to 30% chance that cholecystectomy does not relieve her symptoms, were explained to the patient. She was understanding of the risks and wished to proceed. Procedure: Preoperative diagnosis: Biliary dyskinesia, right upper quadrant syndrome Postoperative diagnosis: Same Procedure performed: Laparoscopic cholecystectomy Surgeon: Dr. Kd Eason DO Estimated blood loss: 5 mL Specimens: Gallbladder to pathology Complications: None apparent Description of procedure: Patient was wheeled into the operative room and placed on the OR table in a supine position. Abdomen was inspected prepped and draped in usual sterile fashion. Time-out was performed and all present were in agreement. A 15 blade scalp was used to make a stab incision in the left upper quadrant and intra- abdominal insufflation was achieved using a Veress needle. After localizing the tissue incisions were made and a 5 millimeter trocar was placed into the umbilicus as well as 2 in the right upper quadrant. A 12 millimeter trocar was placed in the epigastrium. Gallbladder was grasped and elevated. The triangle of Calot was carefully dissected using blunt dissection and electrocautery until the triangle of Calot clearly identified. The cystic duct was clipped proximally and double clipped distally. The duct was then ligated proximally. The cystic artery was doubly clipped and ligated. The gallbladder was then removed from the liver bed using electrocautery. The gallbladder was removed from the abdomen using an Endo-Catch bag through the epigastric incision. The liver bed was inspected and no bleeding was seen. The abdomen was irrigated and suctioned. All ports removed. Skin was washed and dried. Incisions were closed with 4-0 Monocryl in a subcuticular interrupted fashion. Skin glue was applied. Patient tolerated the procedure well.
[2023-11-08] MEDS: fentaNYL 50 mcg/mL INJ 2mL IVP (15:33)
[2023-11-08] MEDS: ondansetron 2 mg/ML SDV 2 mL 4 MG IVP (15:33)
[2023-11-08] MEDS: HYDROcodone-acetaminophen 7.5-325 mg Tablet 1 TAB PO (16:27)
--- NOTE | 2023-11-08 16:27 | ANE.PACU2 ---
Inpatient post-anesthesia follow up: Vital signs: Temperature 98.3 F Pulse Rate 85 Respiratory Rate 16 Blood Pressure 136/52 Pulse Oximetry 94 Oxygen Delivery Me thod Nasal Cannula Oxygen Flow Rate 4 Fraction of Inspir ed Oxygen Hydration adequate: Yes Nausea and vomiting: No Pain level: 1 Mental status: Baseline
--- NOTE | 2023-11-08 17:06 | PC.NURSE ---
augmentin 875mg po bid [id number] no refills called in to [facility] in [place] per dr montero request for pts sinus infection.
== END 2023-11-08 17:02 | disposition home or self-care (01) ==
PROVIDERS: PCP Family Medicine; Visit Provider Surgery
PROC: 0FT44ZZ Resection of Gallbladder, Percutaneous Endoscopic Approach (ICD-10-PCS; CPT 47562; principal; 2023-11-08 13:15)
DX: K80.10 Calculus of gallbladder with chronic cholecystitis without obstruction (principal); Z99.81 Dependence on supplemental oxygen; Z79.82 Long term (current) use of aspirin; G47.33 Obstructive sleep apnea (adult) (pediatric); J44.9 Chronic obstructive pulmonary disease, unspecified; E78.5 Hyperlipidemia, unspecified; I10 Essential (primary) hypertension; Z87.891 Personal history of nicotine dependence
CPT/HCPCS: 47562; 88304; 93005; J0690; J1100; J1885; J2250; J2405; J2704; J2710; J3010; J3490; J7030

== ENCOUNTER → 2023-11-24 08:31 | Outpatient (BNVA) | payer MEDICARE, MEDICAID, SELFPAY | PROVIDERS: PCP Family Medicine; Visit Provider Surgery | DX: Z90.49 Acquired absence of other specified parts of digestive tract (principal); Z48.815 Encounter for surgical aftercare following surgery on the digestive system; Z79.899 Other long term (current) drug therapy | CPT/HCPCS: 99024 ==

== ENCOUNTER → 2024-01-16 08:53 | Outpatient (BNVA) | payer MEDICARE, MEDICAID, SELFPAY | PROVIDERS: PCP Family Medicine; Visit Provider Family Medicine | DX: J44.9 Chronic obstructive pulmonary disease, unspecified (principal); J96.10 Chronic respiratory failure, unspecified whether with hypoxia or hypercapnia; I10 Essential (primary) hypertension; K21.9 Gastro-esophageal reflux disease without esophagitis; E78.2 Mixed hyperlipidemia; J41.0 Simple chronic bronchitis; M19.90 Unspecified osteoarthritis, unspecified site; F41.1 Generalized anxiety disorder; Z63.6 Dependent relative needing care at home | CPT/HCPCS: 80053; 80061; 85025 ==

== ENCOUNTER → 2024-06-13 14:06 | Outpatient (BNVA) | payer MEDICARE, OTHER, SELFPAY | PROVIDERS: PCP Family Medicine; Referring Provider Family Medicine; Visit Provider Nurse Practitioner Family | DX: D48.5 Neoplasm of uncertain behavior of skin (principal); B07.8 Other viral warts; L82.1 Other seborrheic keratosis; D22.5 Melanocytic nevi of trunk | CPT/HCPCS: 11102; 17000; 17110; 99203 ==

== ENCOUNTER → 2024-07-11 13:02 | Outpatient (BNVA) | payer MEDICARE, SELFPAY | PROVIDERS: PCP Family Medicine; Visit Provider Dermatology | DX: D03.59 Melanoma in situ of other part of trunk (principal); B07.8 Other viral warts | CPT/HCPCS: 11603; 13101; 17110 ==

== ENCOUNTER → 2024-08-02 10:04 | Outpatient (BNVA) | payer MEDICARE, SELFPAY | PROVIDERS: PCP Family Medicine; Visit Provider Nurse Practitioner Family | DX: T81.49XA Infection following a procedure, other surgical site, initial encounter (principal) | CPT/HCPCS: 87070; 87075; 87077; 87184; 87205 ==

== ENCOUNTER → 2024-08-07 13:00 | Outpatient (BNVA) | payer MEDICARE, SELFPAY | PROVIDERS: PCP Family Medicine; Visit Provider Dermatology | DX: T81.31XA Disruption of external operation (surgical) wound, not elsewhere classified, initial encounter (principal); X58.XXXA Exposure to other specified factors, initial encounter; D48.5 Neoplasm of uncertain behavior of skin | CPT/HCPCS: 11102; 99214 ==

== ENCOUNTER → 2024-08-21 11:07 | Outpatient (BNVA) | payer MEDICARE, SELFPAY | PROVIDERS: PCP Family Medicine; Visit Provider Dermatology | DX: T81.31XA Disruption of external operation (surgical) wound, not elsewhere classified, initial encounter (principal); X58.XXXA Exposure to other specified factors, initial encounter | CPT/HCPCS: 99214 ==

== ENCOUNTER → 2024-09-11 11:20 | Outpatient (BNVA) | payer MEDICARE, SELFPAY | PROVIDERS: PCP Family Medicine; Visit Provider Dermatology | DX: T81.31XA Disruption of external operation (surgical) wound, not elsewhere classified, initial encounter (principal); X58.XXXA Exposure to other specified factors, initial encounter | CPT/HCPCS: 99213 ==

== ENCOUNTER → 2024-10-10 13:34 | Outpatient (BNVA) | payer MEDICARE, MEDICAID, SELFPAY | PROVIDERS: PCP Family Medicine; Visit Provider Nurse Practitioner Family | DX: L82.1 Other seborrheic keratosis (principal); D22.5 Melanocytic nevi of trunk; Z08 Encounter for follow-up examination after completed treatment for malignant neoplasm; Z86.006 Personal history of melanoma in-situ; T81.31XA Disruption of external operation (surgical) wound, not elsewhere classified, initial encounter; X58.XXXA Exposure to other specified factors, initial encounter; L91.8 Other hypertrophic disorders of the skin; L29.89 Other pruritus; R20.8 Other disturbances of skin sensation; L53.8 Other specified erythematous conditions; L57.0 Actinic keratosis | CPT/HCPCS: 17000; 17110; 99213 ==

== ENCOUNTER → 2025-01-21 15:18 | Outpatient (BNVA) | payer MEDICARE, MEDICAID, SELFPAY | PROVIDERS: PCP Family Medicine; Visit Provider Nurse Practitioner Family | DX: R59.0 Localized enlarged lymph nodes (principal); L82.1 Other seborrheic keratosis; D18.01 Hemangioma of skin and subcutaneous tissue; Z08 Encounter for follow-up examination after completed treatment for malignant neoplasm; Z86.006 Personal history of melanoma in-situ | CPT/HCPCS: 99213 ==

== ENCOUNTER 2025-02-04 14:12 | Outpatient (CLI) | payer MEDICARE, MEDICAID, SELFPAY | END 2025-02-04 14:13 | disposition home or self-care (01) | LOC: LAB 02-05 11:56 | PROVIDERS: PCP Family Medicine; Visit Provider Family Medicine | DX: R10.9 Unspecified abdominal pain (principal) | CPT/HCPCS: 80053; 83690 ==

== ENCOUNTER 2025-02-08 12:51 | Outpatient (CLI) | payer MEDICARE, MEDICAID, SELFPAY ==
--- NOTE | 2025-02-08 12:56 | US_ITS ---
WS: [id number] ULTRASOUND SOFT TISSUES RIGHT axilla HISTORY: LOCALIZED ENLARGED LYMPH NODES COMPARISON: None available. TECHNIQUE: 2-D and color Doppler imaging is submitted. Ultrasound directed to the RIGHT axilla. Patient directed to the area of concern. There is a hypoechoic nodule measuring 1.1 x 0.8 x 0.8 cm in the RIGHT axilla which corresponds to 2 abnormal lymph node. No additional masses are identified. US/US soft tissue/extremity [id number] IMPRESSION: Palpable area in the RIGHT axilla corresponds to a normal lymph node with a fat ty hilum.
== END 2025-02-08 12:52 | disposition home or self-care (01) ==
LOC: RAD 12:52
PROVIDERS: PCP Family Medicine; Visit Provider Nurse Practitioner Family
DX: R59.0 Localized enlarged lymph nodes (principal)
CPT/HCPCS: 76882; 80053; 83690

== ENCOUNTER → 2025-02-19 10:36 | Outpatient (BNVA) | payer MEDICARE, MEDICAID, SELFPAY | PROVIDERS: PCP Nurse Practitioner Family; Referring Provider Nurse Practitioner Family; Visit Provider Nurse Practitioner Family | DX: Z86.006 Personal history of melanoma in-situ (principal) | CPT/HCPCS: 71046; 83615 ==

== ENCOUNTER → 2025-05-14 13:48 | Outpatient (BNVA) | payer MEDICARE, MEDICAID, SELFPAY | PROVIDERS: PCP Family Medicine; Visit Provider Family Medicine | DX: I10 Essential (primary) hypertension (principal); E78.2 Mixed hyperlipidemia; Z13.1 Encounter for screening for diabetes mellitus; R73.9 Hyperglycemia, unspecified | CPT/HCPCS: 80048; 80061; 83036 ==

== ENCOUNTER → 2025-05-23 10:27 | Outpatient (BNVA) | payer MEDICARE, MEDICAID, SELFPAY | PROVIDERS: PCP Family Medicine; Visit Provider Nurse Practitioner Family | DX: D18.01 Hemangioma of skin and subcutaneous tissue (principal); L82.1 Other seborrheic keratosis; Z08 Encounter for follow-up examination after completed treatment for malignant neoplasm; Z86.006 Personal history of melanoma in-situ; L91.8 Other hypertrophic disorders of the skin; R20.8 Other disturbances of skin sensation; L29.89 Other pruritus; L53.8 Other specified erythematous conditions; L57.0 Actinic keratosis | CPT/HCPCS: 17000; 17110; 99213 ==

== ENCOUNTER → 2025-09-30 09:42 | Outpatient (BNVA) | payer MEDICARE, MEDICAID, SELFPAY | PROVIDERS: PCP Family Medicine; Visit Provider Nurse Practitioner Family | DX: L82.1 Other seborrheic keratosis (principal); D22.5 Melanocytic nevi of trunk; Z86.006 Personal history of melanoma in-situ; D48.5 Neoplasm of uncertain behavior of skin | CPT/HCPCS: 11102; 99213 ==